=== PATIENT | male | born 1965 | race Caucasian/White ===

== ENCOUNTER 2018-05-15 12:33 | Emergency (ER) | payer OTHER ==
--- NOTE | 2018-05-15 12:42 | EDPHY ---
H & P Time Seen by Provider: 05/15/18 12:39 HPI/ROS: HPI: This is a 53-year-old male who presents with Chief Complaint: Right-sided lower back injury Location: Right lumbar back Quality: Injury Duration: 1 and 0.5 hr prior to arrival Signs and Symptoms: No bleeding, no radiation, no numbness, no weakness, no tingling, no incontinence, + decreased range of motion, no swelling, + pain, no fever Timing: Acute, constant Severity: 10/27 Context: Patient presents with complaints of right lumbar back injury that occurred approximately 1 and 0.5 hr prior to arrival. This morning he was lifting couch then went to the gym and was lifting a bucket and swinging them around. He now complains of right-sided lower back pain that is nonradiating in nature. Denies any change in bowel or bladder habits. No history of back pain in the past. Ambulatory with a slow gait. Reports increased pain with flexion or extension. Unable to sit secondary to pain. Modifying Factors: Took a 1000 mg of ibuprofen prior to arrival with no relief Comment: ROS: A comprehensive 10 system review of systems is otherwise negative aside from elements mentioned in the history of present illness. MEDICAL/SURGICAL/SOCIAL HISTORY: Medical history: Anxiety Surgical history: Denies Social history: Employed, nonsmoker. CONSTITUTIONAL: Moderate distress, middle-aged white male, awake and alert HEENT: Atraumatic and normocephalic. NECK: supple, no midline tenderness, flexion 45 degrees, extension 45 degrees, right and left lateral flexion 45 degrees. No meningismus. Cardiovascular: Normal S1/S2, regular rate, regular rhythm, without murmur rub or gallop. PULMONARY/CHEST: Symmetrical and nontender. no crepitus. Clear to auscultation bilaterally. Good air movement. No accessory muscle usage. ABDOMEN: Soft, nondistended, nontender, no ecchymosis. BACK: No midline tenderness, no paraspinous spasm, deep tendon reflexes 2/2, moderate pain with straight leg raise, No foot drop. Patient has increased pain with any attempt to flex, extend or bilaterally rotate his lower back. Achilles reflexes are equal bilaterally. Able to walk with slow wide stance gait. EXTREMITIES: 2/2 pulses, strength 5/5, DIP/PIP/MCP flexion/extension intact with good light touch sensation. no deformities, no clubbing, no cyanosis or edema. NEUROLOGICAL: no focal neuro deficits. GCS 15. Light touch sensation intact. SKIN: Warm and dry, no erythema. no rash. Good capillary refill. Source: Patient Exam Limitations: No limitations Constitutional: Initial Vital Signs Temperature (C) 36.6 C 05/15/18 12:42 Heart Rate 67 05/15/18 12:42 Respiratory Rate 16 05/15/18 12:42 Blood Pressure 134/102 H 05/15/18 12:42 O2 Sat (%) 97 05/15/18 12:42 O2 Delivery Mode Room Air Allergies/Adverse Reactions: No Known Allergies Allergy (Unverified 05/15/18 12:41) Home Medications: Medication Instructions Recorded Ativan 05/15/18 Clomipramine HCl 05/15/18 Diazepam [Valium 5 MG (*)] 5 mg PO TID PRN #12 tab 05/15/18 methylPREDNISolone [Medrol Dose 1 each PO AD #1 ea 05/15/18 Elkin] oxyCODONE/APAP 5/325 [Percocet 1 - 2 tab PO Q4H PRN #12 tab 05/15/18 5/325 (*)] Medical Decision Making ED Course/Re-evaluation: Vital signs reviewed and show elevated blood pressure likely secondary to pain. Patient is unable to sit or stand secondary to pain. No neurological deficits to warrant emergent MRI. Patient is agreeable to lumbosacral x-rays and IV access for IV medications 1335: Patient given IV Toradol 15 mg, IV Decadron 8 mg, IV Valium 5 mg, Lidoderm patch, p.o. Gabapentin 600 mg 1343: Lumbosacral x-rays my read show no significant stenosis, degenerative disc disease. 1443: Road test performed with 50% improvement in symptoms and pain. Discharge patient home with prescription for Medrol Dosepak, Valium p.r.n. Spasms, Percocet p.r.n. Pain Neurosurgery referral for evaluation and plus or minus MRI No signs of neurovascular compromise/tenting of skin/compartment syndrome/ extremities and joints examined above and below area of concern and are neurovascularly intact/cauda equina syndrome/saddle anesthesia This patient was seen under the supervision of my primary supervising physician. I evaluated care for this patient independently. Differential Diagnosis: Back pain including but not limited to muscular pain, herniated disc, spine fracture, intra-abdominal causes and urinary tract infection. - Data Points Medications Given: Discontinued Medications Dexamethasone (Decadron Injection) 8 mg IVP EDNOW ONE Stop: 05/15/18 12:50 Last Admin: 05/15/18 13:25 Dose: 8 mg Diazepam (Valium) 5 mg IVP EDNOW ONE Stop: 05/15/18 12:50 Last Admin: 05/15/18 13:27 Dose: 5 mg Gabapentin (Neurontin) 600 mg PO EDNOW ONE Stop: 05/15/18 12:50 Last Admin: 05/15/18 13:23 Dose: 600 mg Ketorolac Tromethamine (Toradol) 15 mg IVP EDNOW ONE Stop: 05/15/18 12:50 Last Admin: 05/15/18 13:21 Dose: 15 mg Miscellaneous Medication (Icy Hot Lidocaine/Menthol 4%/1% Patch) 1 patch TD EDNOW ONE Stop: 05/15/18 12:50 Last Admin: 05/15/18 13:28 Dose: 1 patch Departure - Departure Disposition: Home, Routine, Self-Care Clinical Impression: Lumbar strain Qualifiers: Encounter type: initial encounter Qualified Code(s): S39.012A - Strain of muscle, fascia and tendon of lower back, initial encounter Condition: Good Instructions: Low Back Strain (ED) Additional Instructions: Take Tylenol 650 mg every 4 hours and/or Ibuprofen 600 mg every 8 hours with food as needed for pain. Use Percocet every 6 hours as needed for severe/break through pain. Do not use Tylenol and Percocet concomitantly. Use Flexeril every 8 hr as needed for muscle spasms. Medrol Dosepak as directed. Follow up with Neurosurgery in 5-7 days if symptoms do not improve at which time they will evaluate and recommend with you if conservative management MRI surgery is indicated. Referrals: Altaf Meredith MD [Medical Doctor] - As per Instructions Prescriptions: Diazepam [Valium 5 MG (*)] 5 mg PO TID PRN #12 tab PRN Reason: Spasms methylPREDNISolone [Medrol Dose Elkin] 1 each PO AD #1 ea oxyCODONE/APAP 5/325 [Percocet 5/325 (*)] 1 - 2 tab PO Q4H PRN #12 tab PRN Reason: Pain, Severe
[2018-05-15] MEDS ORDERED: DIAZEPAM 5 MG/ML 1 ML SYR IVP ONE (12:49)
[2018-05-15] MEDS ORDERED: KETOROLAC 15 MG/1 ML SDV IVP ONE (12:49)
[2018-05-15] MEDS ORDERED: GABAPENTIN 300 MG CAP PO ONE (12:49)
[2018-05-15] MEDS ORDERED: LIDOCAINE 4%/MENTHOL 1% PATCH TD ONE (12:49)
[2018-05-15] MEDS ORDERED: DEXAMETHASONE 4 MG/ML VIAL IVP ONE (12:49)
[2018-05-15 15:07] VITALS: BP 128/89
[2018-05-15] MEDS ORDERED: PATCH REMOVAL 1 EA PATCH TD SCH (21:00)
== END 2018-05-15 15:06 | disposition home or self-care (01) ==
DX: S39.012A Strain of muscle, fascia and tendon of lower back, initial encounter (principal); X50.0XXA Overexertion from strenuous movement or load, initial encounter; Y93.B9 Activity, other involving muscle strengthening exercises; Y92.838 Other recreation area as the place of occurrence of the external cause
CPT/HCPCS: 96374; J1100; J1885; J3360